=== PATIENT | male | born 2000 | race Caucasian/White ===

== ENCOUNTER 2020-08-22 20:56 | Emergency (ER) | payer SELFPAY ==
[~2020-08-22] VITALS: Ht 172.7 cm; Wt 70.0 kg
--- NOTE | 2020-08-22 21:37 | ED Respiratory ---
General Chief Complaint: Respiratory Problems Stated Complaint: SOB Nursing Triage Note: Pt ambulatory into ER with complaint of SOA x3 days. Pt also has anxiety. Pt complains of hands and fingers being numb. Pt states that his PCP started him on Methylprednisilone today. Source: patient, family Exam Limitations: no limitations History of Present Illness Date Seen by Provider: Aug 22, 2020 Time Seen by Provider: 09:21 Initial Comments Patient is a 19-year-old male who presents to the emergency department by ambulance today with a chief complaint of shortness of breath. Patient states that he is been feeling short of breath for about 3 days with upper respiratory congestion runny nose. Patient states that he has had some cough and low-grade fever. He complains of his hands and fingers being "numb" and tingling. He states that he has not had any known Covid exposures. Patient is Covid vaccinated his second dose was in May. He states that his primary care physician was concerned he might have pneumonia. He has been using his rescue inhalers frequently throughout the day today for shortness of breath and feels like his heart is racing. He was recently started on methylprednisolone as well today. He took his first dose this afternoon. No family history of blood clots, no family history of diabetes. All other review of systems reviewed and negative except as stated above. Timing/Duration: other (2 to 3 days) Severity: moderate Prior Episodes/Possible Cause: occasional episodes Modifying Factors: Improves With Albuterol Inhaler Associated Symptoms: chest pain/soreness, fever/chills (Low-grade fever), headache, nasal congestion, nasal drainage, shortness of breath, other (Sharp left lower quadrant abdominal pain intermittently) Allergies and Home Medications Patient Home Medication List Home Medication List Reviewed: Yes Review of Systems Review of Systems Constitutional: see HPI EENTM: nose congestion Respiratory: cough, short of breath Cardiovascular: chest pain (Left and right sided intermittently) Gastrointestinal: other (Left lower quadrant abdominal pain sharp and intermittent) Genitourinary: no symptoms reported Musculoskeletal: muscle cramps (Hands and fingers with tingling and numbness) Skin: no symptoms reported Psychiatric/Neurological: Anxiety Hematologic/Lymphatic: No Symptoms Reported All Other Systems Reviewed Negative Unless Noted: Yes Past Wjtkdlw-Aydqnm-Slerpx Hx Patient Social History Tobacco Use?: No Use of E-Cig and/or Vaping dev: No Substance use?: No Pt feels they are or have been: No Immunizations Up To Date Influenza Vaccine Up-to-Date: No; Not Current Second COVID19 Vaccination Octavio: 06/22/20 COVID19 Vacc[employer] 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 oz. kg; 23.00 BMI Method: General Appearance: WD/WN, no apparent distress Eyes: Bilateral Eye Normal Inspection, Bilateral Eye PERRL, Bilateral Eye EOMI Neck: non-tender, full range of motion, supple, normal inspection Respiratory: lungs clear, normal breath sounds, no respiratory distress, no accessory muscle use, other (Patient is not tachypneic, room air oxygen saturations are 97 to 99%, no wheezes or rales or rhonchi are heard) Cardiovascular: regular rate, rhythm, tachycardia Gastrointestinal: non tender, soft Neurologic/Psychiatric: alert, normal mood/affect, oriented x 3 Skin: normal color, warm/dry Progress/Results/Core Measures Suspected Sepsis SIRS Temperature: Pulse: 116 Respiratory Rate: 24 Blood Pressure 145 /73 Mean: 97 Results/Orders Lab Results Laboratory Tests Test 08/22/20 21:33 Range/Units SARS-CoV-2 RNA (RT-PCR) Not Detected Not Detecte My Orders Orders - VERO OCHOA MD Covid 19 Inhouse Test (08/22/20 21:30) Vital Signs/I&O 08/22/20 21:02 Temp 36.7 Pulse 116 Resp 24 B/P (MAP) 145/73 (97) Pulse Ox 100 O2 Delivery Room Air Capillary Refill : Less Than 3 Seconds Blood Pressure Mean: 97 Progress Note : Time: 22:14 Progress Note Patient reevaluated he is beginning to realize that he might be allergic to the mold in his house. He states he feels more short of breath at home and at his mother's home and both of them are old houses and he is found mold there. Patient states he feels a little bit better as he has been here in the emergency department. He is still tachycardic with a heart rate around 10 4-1 10. He did start taking methylprednisolone today and I told him that I do not believe that he needs to continue this as he is not having an acute asthma exacerbation I do not believe steroids are indicated. I told him that steroids would also increase his temperature slightly as well as his heart rate and his mood and overall bodily functions. He will stop taking the steroids He is going to continue a little cetirizine and Benadryl as needed for allergy type symptoms and run air purifier in his room. I have advised him to follow-up with his primary care physician I have given him good return precautions. He verbalized understanding. All questions were sought and answered. Patient is stable for discharge. His Covid test was negative. Departure Impression Primary Impression: Dyspnea Qualified Codes: R06.02 - Shortness of breath Disposition: 01 HOME, SELF-CARE Condition: Stable Departure-Patient Inst. Decision time for Depature: 22:15 Referrals: [facility] [place] Instructions: Shortness of Breath (Dyspnea) (DC) Add. Discharge Instructions: Use an air purifier in your room at night. You can continue Benadryl and cetirizine as needed for allergy type symptoms. Try and back off on the number of times that you use your albuterol inhaler. Stop taking your steroids. Return to the emergency department for any new, concerning or emergent complai nts and please follow-up with your primary care provider as needed. VERO OCHOA MD Aug 22, 2020 21:37
[2020-08-22 22:23] VITALS: BP 131/71
== END 2020-08-22 22:22 | disposition home or self-care (01) ==
LOC: ER 21:00
DX: R06.00 Dyspnea, unspecified (principal); Z20.822 Contact with and (suspected) exposure to COVID-19
CPT/HCPCS: 87636; 99282

== ENCOUNTER 2020-08-27 10:31 | Emergency (ER) | payer OTHER ==
[~2020-08-27] VITALS: Ht 182.9 cm; Wt 88.5 kg
--- NOTE | 2020-08-27 11:43 | ED General ---
General Chief Complaint: Cough/Cold/Flu Symptoms Stated Complaint: HEART RACING,SOB,CHILLS Nursing Triage Note: PT AMBULATE TO ROOM 10 WITH C/O COUGH, SOB, HEART RACING, N/V STARTING YESTERDAY. PT REPORTS BEING SEEN IN THIS ED ON THURSDAY FOR SOB. Source of Information: Patient Exam Limitations: No Limitations (WASHINGTON GUAMAN APRN) History of Present Illness Date Seen by Provider: Aug 27, 2020 Time Seen by Provider: 11:30 Initial Comments To ER with cough shortness of breath heart racing nausea vomiting that began yesterday. He was seen here about a week ago for similar symptoms. He has a longstanding history of anxiety but this felt different than any panic attack that he has ever had. States that he has a family history of autoimmune disorders with his uncle having lupus and his mother having an unknown autoimmune disorder. He also informs me that he has vasovagal syndrome and the way he was feeling this morning was how he feels before he passes out with a vasovagal episode. His whole body was tingling and he was breathing fast. However, this was not anxiety he states. He has a long history of anxiety and quit all of his anxiety medications 1 month ago. Timing/Duration: 1-2 Days Associated Systoms: Cough (WASHINGTON GUAMAN APRN) Allergies and Home Medications Allergies Coded Allergies: No Known Allergies (Verified Allergy, Unknown, 08/27/20) Patient Home Medication List Home Medication List Reviewed: Yes (WASHINGTON GUAMAN APRN) Review of Systems Review of Systems Constitutional: see HPI, malaise, weakness EENTM: see HPI Respiratory: no symptoms reported Cardiovascular: no symptoms reported Genitourinary: no symptoms reported Musculoskeletal: no symptoms reported Skin: no symptoms reported Psychiatric/Neurological: See HPI, Anxiety (History of) Hematologic/Lymphatic: No Symptoms Reported Immunological/Allergic: no symptoms reported (WASHINGTON GUAMAN APRN) Past Bgydsjg-Elobsx-Colzln Hx Patient Social History Tobacco Use?: No Substance use?: No Alcohol Use?: No Pt feels they are or have been: No (WASHINGTON GUAMAN APRN) Physical Exam Vital Signs Vital Signs - First Documented 08/27/20 08/27/20 10:56 13:59 Temp 36.9 Pulse 80 Resp 19 B/P (MAP) 141/87 (105) Pulse Ox 100 O2 Delivery Room Air (BRUEGGEMANN,MAYO T MD) Vital Signs Capillary Refill : Less Than 3 Seconds (WASHINGTON GUAMAN APRN) Height, Weight, BMI Height: '" Weight: lbs. oz. kg; 26.00 BMI Method: General Appearance: No Apparent Distress, WD/WN, Other (His heart rate is 89 his oxygen is 99% on room air he is in no distress) Eyes: Bilateral Eye Normal Inspection, Bilateral Eye PERRL, Bilateral Eye EOMI HEENT: PERRL/EOMI, TMs Normal Neck: Full Range of Motion, Normal Inspection Respiratory: No Accessory Muscle Use, No Respiratory Distress Cardiovascular: Regular Rate, Rhythm, Normal Peripheral Pulses Gastrointestinal: Normal Bowel Sounds, Non Tender, Soft Extremity: Normal Capillary Refill, Normal Inspection Neurologic/Psychiatric: Alert, Oriented x3 Skin: Normal Color, Warm/Dry (WASHINGTON GUAMAN APRN) Progress/Results/Core Measures Suspected Sepsis SIRS Temperature: Pulse: 80 Respiratory Rate: 19 Laboratory Tests 08/27/20 12:42: White Blood Count 10.8 Blood Pressure 141 /87 Mean: 105 Laboratory Tests 08/27/20 12:42: Creatinine 1.10, Platelet Count 281, Total Bilirubin 0.4 (WASHINGTON GUAMAN APRN) Results/Orders Lab Results Laboratory Tests Test 08/27/20 10:58 08/27/20 12:42 Range/Units Influenza Type A (RT-PCR) Not Detected Not Detecte Influenza Type B (RT-PCR) Not Detected Not Detecte SARS-CoV-2 RNA (RT-PCR) Not Detected Not Detecte White Blood Count 10.8 4.3-11.0 10^3/uL Red Blood Count 5.24 4.30-5.52 10^6/uL Hemoglobin 15.3 13.3-17.7 g/dL Hematocrit 45 40-54 % Mean Corpuscular Volume 85 80-99 fL Mean Corpuscular Hemoglobin 29 25-34 pg Mean Corpuscular Hemoglobin Concent 34 32-36 g/dL Red Cell Distribution Width 12.7 10.0-14.5 % Platelet Count 281 130-400 10^3/uL Mean Platelet Volume 10.4 9.0-12.2 fL Immature Granulocyte % (Auto) 1 % Neutrophils (%) (Auto) 75 42-75 % Lymphocytes (%) (Auto) 17 12-44 % Monocytes (%) (Auto) 7 0-12 % Eosinophils (%) (Auto) 0 0-10 % Basophils (%) (Auto) 0 0-10 % Neutrophils # (Auto) 8.1 H 1.8-7.8 10^3/uL Lymphocytes # (Auto) 1.8 1.0-4.0 10^3/uL Monocytes # (Auto) 0.7 0.0-1.0 10^3/uL Eosinophils # (Auto) 0.0 0.0-0.3 10^3/uL Basophils # (Auto) 0.0 0.0-0.1 10^3/uL Immature Granulocyte # (Auto) 0.1 0.0-0.1 10^3/uL Erythrocyte Sedimentation Rate 1 0-15 MM/HR D-Dimer < 0.27 0.00-0.49 UG/ML Sodium Level 141 135-145 MMOL/L Potassium Level 3.5 L 3.6-5.0 MMOL/L Chloride Level 107 98-107 MMOL/L Carbon Dioxide Level 21 21-32 MMOL/L Anion Gap 13 5-14 MMOL/L Blood Urea Nitrogen 10 7-18 MG/DL Creatinine 1.10 0.60-1.30 MG/DL Estimat Glomerular Filtration Rate > 60 BUN/Creatinine Ratio 9 Glucose Level 99 70-105 MG/DL Calcium Level 9.6 8.5-10.1 MG/DL Corrected Calcium 8.5-10.1 MG/DL Total Bilirubin 0.4 0.1-1.0 MG/DL Aspartate Amino Transf (AST/SGOT) 13 5-34 U/L Alanine Aminotransferase (ALT/SGPT) 26 0-55 U/L Alkaline Phosphatase 64 40-136 U/L C-Reactive Protein High Sensitivity 0.13 0.00-0.50 MG/DL Total Protein 7.7 6.4-8.2 GM/DL Albumin 4.7 H 3.2-4.5 GM/DL Thyroid Stimulating Hormone (TSH) 2.05 0.35-4.94 UIU/ML Free Thyroxine 1.16 0.70-1.48 NG/DL (MAYO ASHRAF MD) My Orders Orders - MAYO ASHRAF MD Monitor-Rhythm Ecg Trace Only (08/27/20 10:35) Covid 19 Inhouse Test (08/27/20 10:35) Influenza A And B By Pcr (08/27/20 10:35) (MAYO ASHRAF MD) Medications Given in ED Current Medications Medications Dose Ordered Sig/Jesus Route Start Time Stop Time Status Last Admin Dose Admin Al Hydrox/Mg Hydrox/Simethicone 30 ml ONCE ONCE PO 08/27/20 12:30 08/27/20 12:31 DC 08/27/20 12:39 30 ML (MAYO ASHRAF MD) Vital Signs/I&O 08/27/20 08/27/20 08/27/20 10:56 11:00 13:59 Temp 36.9 Pulse 80 89 Resp 19 18 B/P (MAP) 141/87 (105) 131/69 Pulse Ox 100 O2 Delivery Room Air Room Air Room Air (MAYO ASHRAF MD) Vital Signs/I&O Capillary Refill : Less Than 3 Seconds (WASHINGTON GUAMAN APRN) Blood Pressure Mean: 105 Departure Communication (Admissions) His EKG done at 1058 this morning shows sinus rhythm with a rate of 80 short ND interval of 104 ms, QTC normal at 411 ms no ectopy or ST segment change. (WASHINGTON GUAMAN APRN) Impression Primary Impression: Dyspnea Disposition: 01 HOME, SELF-CARE Condition: Stable Departure-Patient Inst. Decision time for Depature: 12:32 (WASHINGTON GUAMAN APRN) Referrals: NO,LOCAL PHYSICIAN (PCP/Family) Primary Care Physician Patient Instructions: NO INSTRUCTIONS GIVEN Add. Discharge Instructions: Keep the contracts manager appointment as scheduled for further work-up of your shortness of breath and symptoms. However, we must also be open minded to the fact that this may be anxiety. All discharge instructions reviewed with patient and/or family. Voiced und erstanding. ATTENDING PHYSICIAN NOTE: I was physically present as attending physician in the emergency department during the care of this patient, but I was not directly involved in the decision making or delivery of care for this patient. (MAYO ASHRAF MD) WASHIGNTON GUAMAN APRN Aug 27, 2020 11:42 MAYO ASHRAF MD Aug 27, 2020 20:34
[2020-08-27] MEDS ORDERED: IBUPROFEN 800 MG (MOTRIN) TAB PO ONE (11:45)
--- NOTE | 2020-08-27 12:27 | Diagnostic Imaging Report ---
Portable erect AP chest at 12:19. INDICATION: Cough, shortness of breath COMPARISON: None. FINDINGS: The heart size is within normal limits. The lungs are clear. There is no evidence for failure, pneumonia or for a pleural effusion. The mediastinum is not widened. The osseous structures are intact. IMPRESSION: There is no evidence for active disease. Dictated by: Dictated on workstation # [id number]
[2020-08-27] MEDS ORDERED: ANTACID SUSP 30 ML UDC (MYLANTA) PO ONE (12:30)
[2020-08-27 12:50] LABS: BASOPHILS % (AUTO) 0 % (0-10); EOSINOPHILS % (AUTO) 0 % (0-10); HEMATOCRIT 45 % (40-54); HEMOGLOBIN 15.3 g/dL (13.3-17.7); LYMPHOCYTES # (AUTO) 1.8 10^3/uL (1.0-4.0); LYMPHOCYTES % (AUTO) 17 % (12-44); MEAN CORPUSCULAR HEMOGLOBIN 29 pg (25-34); MEAN CORPUSCULAR HGB CONC 34 g/dL (32-36); MEAN CORPUSCULAR VOLUME 85 fL (80-99); MEAN PLATELET VOLUME 10.4 fL (9.0-12.2); MONOCYTES # (AUTO) 0.7 10^3/uL (0.0-1.0); MONOCYTES % (AUTO) 7 % (0-12); NEUTROPHILS # (AUTO) 8.1 10^3/uL (1.8-7.8); NEUTROPHILS % (AUTO) 75 % (42-75); PLATELET COUNT 281 10^3/uL (130-400); WHITE BLOOD COUNT 10.8 10^3/uL (4.3-11.0)
[2020-08-27 13:01] LABS: ALBUMIN 4.7 GM/DL (3.2-4.5); CHLORIDE 107 MMOL/L (98-107); POTASSIUM 3.5 MMOL/L (3.6-5.0); SODIUM 141 MMOL/L (135-145)
[2020-08-27 13:03] LABS: CALCIUM 9.6 MG/DL (8.5-10.1)
[2020-08-27 13:04] LABS: GLUCOSE 99 MG/DL (70-105); TOTAL PROTEIN 7.7 GM/DL (6.4-8.2)
[2020-08-27 13:05] LABS: BILIRUBIN,TOTAL 0.4 MG/DL (0.1-1.0); CARBON DIOXIDE 21 MMOL/L (21-32); ERYTHROCYTE SEDIMENTATION RATE 1 MM/HR (0-15)
[2020-08-27 13:07] LABS: ALKALINE PHOSPHATASE 64 U/L (40-136); GFR ESTIMATED > 60
[2020-08-27 13:08] LABS: BUN/CREATININE RATIO 9
[2020-08-27 13:10] LABS: ALANINE AMINOTRANSFERASE 26 U/L (0-55)
[2020-08-27 13:30] LABS: FREE T4 (FREE THYROXINE) 1.16 NG/DL (0.70-1.48)
[2020-08-27 13:59] VITALS: BP 131/69
== END 2020-08-27 13:59 | disposition home or self-care (01) ==
LOC: EDUNIT# 10:31 → ER 10:34
DX: R06.00 Dyspnea, unspecified (principal); Z20.822 Contact with and (suspected) exposure to COVID-19
CPT/HCPCS: 36415; 71045; 80053; 84439; 84443; 85025; 85379; 85652; 86141; 87636; 93005; 93041

== ENCOUNTER 2021-08-16 10:53 | Emergency (ER) | payer OTHER ==
[~2021-08-16] VITALS: Ht 185 cm; Wt 95.0 kg
[2021-08-16] MEDS ORDERED: ONDANSETRON 4 MG/2 ML (SDV) Z0FRAN IVP ONE (11:15)
[2021-08-16] MEDS ORDERED: NS IV 1000 ML 1,000 ML IV STA (11:15)
--- NOTE | 2021-08-16 11:19 | ED Abdominal Pain ---
General Stated Complaint: ABD PAIN, N/V Source of Information: Patient Exam Limitations: No Limitations History of Present Illness Date Seen by Provider: Aug 16, 2021 Time Seen by Provider: 11:17 Initial Comments This is a 20-year-old male with history of gastric ulcers that presents to the emergency room for evaluation of nausea and vomiting and lower abdominal pain. He states that he has had symptoms since Thursday and he went to [facility] and was given Carafate and Protonix and states his symptoms have not improved. He states that he has not had any blood in his emesis or stools and that his pain is currently a dull 6 out of 10. He has not had any ill exposures or recent travel. Timing/Duration: 1 Week Severity/Quality: Moderate Location: [facility] Radiation: No Radiation Activities at Onset: None Associated Symptoms: Denies Symptoms Allergies and Home Medications Allergies Coded Allergies: No Known Allergies (Verified Allergy, Unknown, 08/27/20) Patient Home Medication List Home Medication List Reviewed: Yes Review of Systems Review of Systems Constitutional: no symptoms reported EENTM: No Symptoms Reported Respiratory: No Symptoms Reported Cardiovascular: No Symptoms Reported Gastrointestinal: Abdominal Pain, Nausea, Vomiting Genitourinary: No Symptoms Reported Musculoskeletal: no symptoms reported Skin: no symptoms reported Psychiatric/Neurological: No Symptoms Reported Hematologic/Lymphatic: No Symptoms Reported All Other Systems Reviewed Negative Unless Noted: Yes Past Gahwnaf-Akwrri-Slmiif Hx Patient Social History Tobacco Use?: No Use of E-Cig and/or Vaping dev: No Physical Exam Vital Signs Vital Signs - First Documented 08/16/21 11:14 Temp 36.9 Pulse 90 Resp 18 B/P (MAP) 145/85 (105) Pulse Ox 97 O2 Delivery Room Air Capillary Refill : Height/Weight/BMI Height: '" Weight: lbs. oz. 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 nml as tested, alert, oriented x 3 Skin: normal color, warm/dry Lymphatic: no adenopathy Progress/Results/Core Measures Results/Orders Lab Results Laboratory Tests Test 08/16/21 11:14 Range/Units White Blood Count 7.6 4.3-11.0 10^3/uL Red Blood Count 5.37 4.30-5.52 10^6/uL Hemoglobin 15.7 13.3-17.7 g/dL Hematocrit 45 40-54 % Mean Corpuscular Volume 83 80-99 fL Mean Corpuscular Hemoglobin 29 25-34 pg Mean Corpuscular Hemoglobin Concent 35 32-36 g/dL Red Cell Distribution Width 12.2 10.0-14.5 % Platelet Count 297 130-400 10^3/uL Mean Platelet Volume 9.9 9.0-12.2 fL Immature Granulocyte % (Auto) 0 % Neutrophils (%) (Auto) 77 H 42-75 % Lymphocytes (%) (Auto) 15 12-44 % Monocytes (%) (Auto) 7 0-12 % Eosinophils (%) (Auto) 0 0-10 % Basophils (%) (Auto) 0 0-10 % Neutrophils # (Auto) 5.8 1.8-7.8 10^3/uL Lymphocytes # (Auto) 1.2 1.0-4.0 10^3/uL Monocytes # (Auto) 0.5 0.0-1.0 10^3/uL Eosinophils # (Auto) 0.0 0.0-0.3 10^3/uL Basophils # (Auto) 0.0 0.0-0.1 10^3/uL Immature Granulocyte # (Auto) 0.0 0.0-0.1 10^3/uL Sodium Level 140 135-145 MMOL/L Potassium Level 3.8 3.6-5.0 MMOL/L Chloride Level 105 98-107 MMOL/L Carbon Dioxide Level 25 21-32 MMOL/L Anion Gap 10 5-14 MMOL/L Blood Urea Nitrogen 9 7-18 MG/DL Creatinine 1.06 0.60-1.30 MG/DL Estimat Glomerular Filtration Rate 103 BUN/Creatinine Ratio 8 Glucose Level 111 H 70-105 MG/DL Calcium Level 9.8 8.5-10.1 MG/DL Corrected Calcium 8.5-10.1 MG/DL Total Bilirubin 1.0 0.1-1.0 MG/DL Aspartate Amino Transf (AST/SGOT) 14 5-34 U/L Alanine Aminotransferase (ALT/SGPT) 33 0-55 U/L Alkaline Phosphatase 61 40-136 U/L Total Protein 8.1 6.4-8.2 GM/DL Albumin 4.9 H 3.2-4.5 GM/DL Lipase 15 8-78 U/L My Orders Orders - SIGIFREDO SOLORZANO Ct Abdomen/Pelvis W (08/16/21 11:15) Ed Iv/Invasive Line Start (08/16/21 11:15) Cbc With Automated Diff (08/16/21 11:15) Comprehensive Metabolic Panel (08/16/21 11:15) Lipase (08/16/21 11:15) Ondansetron Injection (Zofran Injectio (08/16/21 11:15) Ns Iv 1000 Ml (Sodium Chloride 0.9%) (08/16/21 11:15) Iohexol Injection (Omnipaque 350 Mg/Ml 1 (08/16/21 11:30) Received Contrast (Hold Metformin- Contr (08/16/21 11:30) Ns (Ivpb) (Sodium Chloride 0.9% Ivpb Bag (08/16/21 11:30) Medications Given in ED Current Medications Medications Dose Ordered Sig/Jesus Route Start Time Stop Time Status Last Admin Dose Admin Iohexol 100 ml ONCE ONCE IV 08/16/21 11:30 08/16/21 11:31 DC 08/16/21 12:22 84 ML Ondansetron HCl 4 mg ONCE ONCE IVP 08/16/21 11:15 08/16/21 11:16 DC 08/16/21 11:28 4 MG Sodium Chloride 100 ml ONCE ONCE IV 08/16/21 11:30 08/16/21 11:31 DC 08/16/21 12:22 100 ML Vital Signs/I&O 08/16/21 11:14 Temp 36.9 Pulse 90 Resp 18 B/P (MAP) 145/85 (105) Pulse Ox 97 O2 Delivery Room Air Departure Communication (PCP) Patient is afebrile, nontoxic, no distress. His abdomen has mild tenderness throughout the lower portion there is no rebound or guarding. CT of the abdomen pelvis did not show any acute pathology. Lab work is reassuring. No evidence or suspicion of perforation, appendicitis, testicular torsion or other emergent condition. Patient will be treated symptomatically with ODT Zofran and I recommended that he follow-up closely with primary care. He is in agreement to the care plan. Impression Primary Impression: Nausea and vomiting Disposition: HOME, SELF-CARE Condition: Stable Departure-Patient Inst. Decision time for Depature: 12:47 Referrals: [facility] (PCP) Primary Care Physician DEAN GAMEZ APRN (Family) Primary Care Physician Patient Instructions: Dehydration, Adult (DC), Viral Gastroenteritis Add. Discharge Instructions: Please continue to push fluids and eat a bland diet as we discussed. Follow-up closely with your primary care doctor. Return to the emergency room with any severe changes or worsening of symptoms Scripts Ondansetron (Ondansetron Odt) 4 Mg Tab.rapdis 4 MG PO TID for Nausea, #14 TAB Prov: SIGIFREDO SOLORZANO 08/16/21 SIGIFREDO SOLORZANO Aug 16, 2021 11:19
[2021-08-16 11:23] LABS: BASOPHILS % (AUTO) 0 % (0-10); EOSINOPHILS % (AUTO) 0 % (0-10); HEMATOCRIT 45 % (40-54); HEMOGLOBIN 15.7 g/dL (13.3-17.7); LYMPHOCYTES # (AUTO) 1.2 10^3/uL (1.0-4.0); LYMPHOCYTES % (AUTO) 15 % (12-44); MEAN CORPUSCULAR HEMOGLOBIN 29 pg (25-34); MEAN CORPUSCULAR HGB CONC 35 g/dL (32-36); MEAN CORPUSCULAR VOLUME 83 fL (80-99); MEAN PLATELET VOLUME 9.9 fL (9.0-12.2); MONOCYTES # (AUTO) 0.5 10^3/uL (0.0-1.0); MONOCYTES % (AUTO) 7 % (0-12); NEUTROPHILS # (AUTO) 5.8 10^3/uL (1.8-7.8); NEUTROPHILS % (AUTO) 77 % (42-75); PLATELET COUNT 297 10^3/uL (130-400); WHITE BLOOD COUNT 7.6 10^3/uL (4.3-11.0)
[2021-08-16] MEDS ORDERED: IOHEXOL 350 MG/ML 100 ML (OMNIPAQUE 350) VIAL IV ONE (11:30)
[2021-08-16] MEDS ORDERED: HOLD METFORMIN - RECEIVED CONTRAST 20 ML VIAL IV SCH (11:30)
[2021-08-16] MEDS ORDERED: NS 100 ML (IVPB) BAG IV ONE (11:30)
[2021-08-16 11:45] LABS: ALBUMIN 4.9 GM/DL (3.2-4.5); CHLORIDE 105 MMOL/L (98-107); POTASSIUM 3.8 MMOL/L (3.6-5.0); SODIUM 140 MMOL/L (135-145)
[2021-08-16 11:46] LABS: CALCIUM 9.8 MG/DL (8.5-10.1)
[2021-08-16 11:47] LABS: GLUCOSE 111 MG/DL (70-105); TOTAL PROTEIN 8.1 GM/DL (6.4-8.2)
[2021-08-16 11:48] LABS: CARBON DIOXIDE 25 MMOL/L (21-32)
[2021-08-16 11:50] LABS: ALKALINE PHOSPHATASE 61 U/L (40-136)
[2021-08-16 11:51] LABS: CREATININE SERUM 1.06 MG/DL (0.60-1.30); GFR ESTIMATED 103
[2021-08-16 11:52] LABS: BUN/CREATININE RATIO 8
[2021-08-16 11:54] LABS: ALANINE AMINOTRANSFERASE 33 U/L (0-55); LIPASE 15 U/L (8-78)
--- NOTE | 2021-08-16 12:39 | Diagnostic Imaging Report ---
EXAMINATION: CT abdomen and pelvis with intravenous contrast. TECHNIQUE: Multiple contiguous axial images were obtained through the abdomen and pelvis after the uneventful administration of intravenous contrast. All CT scans use one or more of the following dose optimizing techniques: automated exposure control, MA and/or KvP adjustment based on patient size and exam type or iterative reconstruction. HISTORY: Right lower quadrant abdominal pain. COMPARISON: None available. FINDINGS: The heart is unremarkable. The included lung bases are clear. The liver, spleen, pancreas, adrenal glands, and kidneys have a normal appearance. The gallbladder is unremarkable. There is no pathologically enlarged mesenteric or retroperitoneal adenopathy. The bowel loops are nondilated. The appendix is visualized in the right lower quadrant and has a normal appearance. Scattered diverticula are seen in the descending and sigmoid colon without evidence of acute diverticulitis. There is no free fluid or free air. No acute osseous abnormalities. Ureters and bladder are grossly normal. There is no free air, loculated collection, or adenopathy in the pelvis. IMPRESSION: 1. Scattered diverticula in the descending and sigmoid colon without evidence of acute diverticulitis. 2. No evidence of bowel obstruction. No free fluid or free air. Normal appendix. Dictated by: Dictated on workstation # [id number]
[2021-08-16] MEDS ORDERED: ONDA4TAB11 PO (12:48)
[2021-08-16 13:00] VITALS: BP 155/77
== END 2021-08-16 13:51 | disposition home or self-care (01) ==
LOC: EDUNIT# 10:53 → ER 10:55
DX: R11.2 Nausea with vomiting, unspecified (principal); R10.31 Right lower quadrant pain; Z87.19 Personal history of other diseases of the digestive system
CPT/HCPCS: 36415; 74177; 80053; 83690; 85025

== ENCOUNTER → 2022-07-10 | Outpatient (CLI) | payer OTHER ==
[~2022-07-10] MED LIST: ONDA4TAB11 PO
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
== END ==
LOC: RAD 07:22
PROVIDERS: ATTEND Family Medicine Sports Medicine
DX: M48.02 Spinal stenosis, cervical region (principal)
CPT/HCPCS: 72141